=== PATIENT | male | born 1975 | race Hispanic/Latino ===

== ENCOUNTER 2021-12-11 21:04 | Inpatient (IN) | payer OTHER, SELFPAY ==
[~2021-12-11 21:04] MED LIST: Iopamidol 370 76% 100 ML VIAL ONE
[2021-12-11] MEDS ORDERED: CEFAZOLIN 1 GM VIAL ONE (21:11)
[2021-12-11] MEDS ORDERED: Boostrix 0.5 ML (Tdap) VIAL ONE (21:11)
[2021-12-11 21:21] LABS: Hemoglobin 16.7 g/dL (14.0-18.0); Mean Corpuscular HGB CONC 33.2 g/dL (32.0-36.0); Mean Corpuscular Hemoglobin 32.2 pg (27.0-31.0); Mean Corpuscular Volume 96.9 fL (78.0-98.0); Mean Platelet Volume 9.6 fL (7.4-10.4); Platelet Count 160 thou/uL (130-400); RBC Distribution Width 12.1 % (11.5-14.5); White Blood Cell (WBC) Count 18.5 thou/uL (4.8-10.8)
[2021-12-11] MEDS ORDERED: hydrALAZINE 20 MG/ML VIAL SLOW IVP PRN (21:29)
[2021-12-11] MEDS ORDERED: Dextrose 5% in Water 1,000 ML IV PRN (21:29)
[2021-12-11] MEDS ORDERED: Promethazine HCl 25 MG/ML VIAL IM PRN (21:29)
[2021-12-11] MEDS ORDERED: Ondansetron PF 4 MG/2 ML Vial IVP PRN (21:29)
[2021-12-11] MEDS ORDERED: Dextrose 50% Abboject 50 ML SYRINGE SLOW IVP PRN (21:29)
[2021-12-11 21:30] LABS: INR-International Normal Ratio 1.1; PTT 25.8 sec (22.9-36.1)
[2021-12-11] MEDS ORDERED: fentaNYL Citrate/PF 2,000 MCG in Sodium Chloride 0.9% 60 ML IV PRN (21:33)
[2021-12-11 21:38] LABS: ALT (SGPT) 240 U/L (8-55); AST (SGOT) 331 U/L (5-34); Albumin 3.8 g/dL (3.5-5.0); Alkaline Phosphatase 125 U/L (40-110); Anion Gap 22 mmol/L (10-20); BUN (Urea Nitrogen) 11 mg/dL (8.9-20.6); Bilirubin, Total 0.5 mg/dL (0.2-1.2); Calc. Creatinine Clearance 0 mL/min (70-130); Calcium 8.3 mg/dL (7.8-10.44); Carbon Dioxide 19 mmol/L (22-29); Chloride 101 mmol/L (98-107); Estimated GFR 73; Glucose 417 mg/dL (70-105); Potassium 3.3 mmol/L (3.5-5.1); Protein, Total 7.8 g/dL (6.0-8.3); Sodium 139 mmol/L (136-145)
[2021-12-11 21:50] LABS: Acetaminophen Less than 10.0 mcg/mL (10.0-30.0); Alcohol 224 mg/dL (Less than 10); Salicylate Less than 8.0 mg/dL (15.0-30.0)
[2021-12-11 21:52] LABS: Band 1 % (5-11); Differential Comment Immature Cell(s); Eosinophils 4 % (0-10); Lymphocytes 70 % (21-51); MDiff Complete? YES; Metamyelocyte 1 % (0-0); Monocytes 2 % (0-10); Neutrophil 18 % (42-75); Platelet Morphology Comment Appears Adequate; RBC Morphology Normal; Reactive Lymphocytes 2 % (0-10); Reflex for Review?? YES
[2021-12-11] MEDS ORDERED: Propofol 1,000 MG/100 ML VIAL IV ONE (22:03)
[2021-12-11] MEDS ORDERED: Propofol 1,000 MG/100 ML VIAL IV PRN (22:03)
[2021-12-11] MEDS ORDERED: Fluorescein Opthalmic Strip ONE (22:11)
[2021-12-11 22:12] LABS: Bacteria/HPF None Seen HPF (None Seen); Bilirubin Negative (Negative); Blood, Urine 2+ (Negative); Clarity Clear (Clear); Glucose, Urine (Dipstick) Greater than 1000 mg/dL (Negative); Ketone, Urine Negative (Negative); Leukocyte Negative Leu/uL (Negative); Nitrite Negative (Negative); Protein, Urine (Dipstick) Negative (Neg-Trace); Specific Gravity, Urine 1.031 (1.002-1.036); Squamous Epithelial None Seen HPF (0-3); Urobilinogen Normal mg/dL (Less than 2); WBC/HPF 0-3 HPF (0-3); pH, Urine 5.5 (5.0-9.0)
[2021-12-11] MEDS ORDERED: Proparacaine 0.5% Opth 15 ML BOT ONE (22:12)
[2021-12-11 22:15] LABS: Actual Bicarbonate (HCO3a) 20.4 mEq/L (22-28); Analyzer IN Cardio ER; Base Excess (BEa) -8.1 mEq/L (-2.0 to +3.0); CO2 Tension 53.5 mmHg (35.0-45.0); Calcium, Ionized (arterial) 1.09 mmol/L (1.12-1.30); Carboxyhemoglobin (COHb) 1.2 gm% (0.0-3.0); Hemoglobin (Hb) 15.4 g/dL (14.0-18.0); O2 Tension (PaO2), arterial 102.9 mmHg (80.0-100.0); Potassium - ABG Lab 3.91 mmol/L (3.70-5.30)
[2021-12-11 22:19] LABS: Amphetamine Not Detected (NotDetected); Barbiturates Screen Not Detected (NotDetected); Benzodiazepine Screen Not Detected (NotDetected); Cocaine Metabolite Screen Not Detected (NotDetected); Methadone Not Detected (NotDetected); Methamphetamine Not Detected (NotDetected); Opiate Screen Not Detected (NotDetected); Oxycodone Screen Not Detected (NotDetected); Phencyclidine (PCP) Not Detected (NotDetected); THC/Cannabinoid Screen Not Detected (NotDetected); Tricyclic Screen Not Detected (NotDetected)
[2021-12-11 22:21] LABS: Puncture Site RRA
[2021-12-11 22:22] LABS: ALV-art Gradient 543.225 mmHg (0-20)
[2021-12-11 22:41] LABS: Hemoglobin A1c 10.6 % (4.0-6.0)
[2021-12-11] MEDS: Rocuronium Bromide 10 MG/ML (10ML VIAL) ONE (23:09)
[2021-12-11] MEDS: Sodium Chloride 0.9% 1,000 ML IV SCH (23:38)
[2021-12-11] MEDS ORDERED: Acetaminophen 325 MG TAB PO SCH (23:59)
[2021-12-12] MEDS: Acetaminophen 500 MG TAB PO SCH ×3 (00:07→12:32)
[2021-12-12] MEDS: Rocuronium Bromide 10 MG/ML (10ML VIAL) ONE (00:08)
[2021-12-12 00:15] LABS: Lactic Acid 6.3 mmol/L (0.5-2.2)
[2021-12-12] MEDS: Cyclobenzaprine 10 MG TAB PO PRN ×2 (01:35→14:54)
[2021-12-12 03:39] LABS: #Basophils 0.1 thou/uL (0.0-0.2); #Lymphocytes 2.2 thou/uL (1.20-3.40); #Monocytes 0.8 thou/uL (0.11-0.59); #Neutrophils 11.9 thou/uL (1.40-6.50); %Basophils 0.4 % (0.0-1.0); %Eosinophils 0.1 % (0.0-10.0); %Lymphocytes 14.5 % (21.0-51.0); %Monocytes 5.2 % (0.0-10.0); %Neutrophils 79.8 % (42.0-75.0); Hemoglobin 15.5 g/dL (14.0-18.0); Mean Corpuscular HGB CONC 34.5 g/dL (32.0-36.0); Mean Corpuscular Hemoglobin 33.3 pg (27.0-31.0); Mean Corpuscular Volume 96.4 fL (78.0-98.0); Mean Platelet Volume 9.5 fL (7.4-10.4); Platelet Count 139 thou/uL (130-400); Red Blood Cell (RBC) Count 4.65 mill/uL (4.70-6.10); White Blood Cell (WBC) Count 14.9 thou/uL (4.8-10.8)
[2021-12-12 03:59] LABS: Anion Gap 25 mmol/L (10-20); BUN (Urea Nitrogen) 10 mg/dL (8.9-20.6); CK (CPK) 795 U/L (30-200); Calc. Creatinine Clearance 142 mL/min (70-130); Calcium 8.2 mg/dL (7.8-10.44); Carbon Dioxide 14 mmol/L (22-29); Chloride 107 mmol/L (98-107); Estimated GFR 93; Glucose 324 mg/dL (70-105); Magnesium 1.5 mg/dL (1.6-2.6); Sodium 142 mmol/L (136-145)
[2021-12-12 04:08] LABS: Lactic Acid 9.2 mmol/L (0.5-2.2)
[2021-12-12 04:09] LABS: Phosphorus 1.2 mg/dL (2.3-4.7)
[2021-12-12] MEDS ORDERED: Sodium Chloride 0.9% 1,000 ML IV SCH (04:30)
[2021-12-12] MEDS ORDERED: Potassium Phosphate 30 MMOL in Sodium Chloride 0.9% 500 ML IVPB SCH (05:00)
[2021-12-12] MEDS ORDERED: Magnesium Sulfate In Water 4 GM in Premix Bag 1 BAG IVPB SCH (05:30)
[2021-12-12] MEDS: Oxazepam 10 MG CAP PO SCH ×3 (06:00→20:23)
[2021-12-12] MEDS ORDERED: Calcium Chloride 1 GM/10 ML Abboject SYRINGE IVP SCH (06:15)
[2021-12-12 06:22] LABS: Lactic Acid 5.4 mmol/L (0.5-2.2)
[2021-12-12 06:58] LABS: Actual Bicarbonate (HCO3a) 20.6 mEq/L (22-28); Base Excess (BEa) -1.2 mEq/L (-2.0 to +3.0); CO2 Tension 27.5 mmHg (35.0-45.0); Calcium, Ionized (arterial) 1.24 mmol/L (1.12-1.30); Potassium - ABG Lab 4.23 mmol/L (3.70-5.30); pH, Arterial 7.49 (7.35-7.45)
[2021-12-12 06:59] LABS: ALV-art Gradient 169.825 mmHg (0-20); Puncture Site RRA
[2021-12-12] MEDS: Sodium Chloride 0.9% 1,000 ML IV SCH ×4 (07:00→20:46)
[2021-12-12] MEDS ORDERED: Dextrose 50% Abboject 50 ML SYRINGE IVP PRN (08:15)
[2021-12-12] MEDS ORDERED: Dextrose 5% in Water 1,000 ML IV PRN (08:15)
[2021-12-12] MEDS: Folic Acid 1 MG TAB PO SCH (08:31)
[2021-12-12] MEDS: Pregabalin 50 MG CAP PO SCH ×2 (08:31→20:23)
[2021-12-12] MEDS: Thiamine 100 MG TAB PO SCH (08:31)
[2021-12-12] MEDS: HumaLOG 300 UNITS/3 ML VIAL SC PRN ×2 (08:31→16:25)
[2021-12-12] MEDS: Insulin Glargine 30 UNITS/0.3 ML VIAL SC SCH (08:31)
[2021-12-12] MEDS: Famotidine/PF 20 mg/2ml Vial SLOW IVP SCH ×2 (08:32→20:23)
[2021-12-12] MEDS: Acetaminophen/Codeine 30-300mg Tablet PO SCH ×2 (14:13→20:21)
[2021-12-12] MEDS ORDERED: Morphine 2 MG/ML VIAL SLOW IVP PRN (14:17)
[2021-12-13] MEDS: HumaLOG 300 UNITS/3 ML VIAL SC PRN ×6 (00:13→21:11)
[2021-12-13] MEDS: Acetaminophen/Codeine 30-300mg Tablet PO SCH (01:45)
[2021-12-13 04:04] LABS: Lactic Acid 1.3 mmol/L (0.5-2.2)
[2021-12-13 04:15] LABS: Anion Gap 11 mmol/L (10-20); BUN (Urea Nitrogen) 11 mg/dL (8.9-20.6); CK (CPK) 658 U/L (30-200); Calc. Creatinine Clearance 188 mL/min (70-130); Calcium 8.1 mg/dL (7.8-10.44); Carbon Dioxide 24 mmol/L (22-29); Chloride 111 mmol/L (98-107); Estimated GFR 112; Glucose 208 mg/dL (70-105); Magnesium 2.1 mg/dL (1.6-2.6); Phosphorus 2.3 mg/dL (2.3-4.7); Potassium 3.9 mmol/L (3.5-5.1); Sodium 142 mmol/L (136-145)
[2021-12-13 04:17] LABS: #Eosinphils 0.1 thou/uL (0.0-0.7); #Lymphocytes 2.8 thou/uL (1.20-3.40); #Monocytes 0.8 thou/uL (0.11-0.59); #Neutrophils 7.6 thou/uL (1.40-6.50); %Basophils 0.3 % (0.0-1.0); %Lymphocytes 24.2 % (21.0-51.0); %Monocytes 7.3 % (0.0-10.0); %Neutrophils 67.1 % (42.0-75.0); Mean Corpuscular HGB CONC 32.8 g/dL (32.0-36.0); Mean Corpuscular Hemoglobin 31.5 pg (27.0-31.0); Mean Corpuscular Volume 96.1 fL (78.0-98.0); Mean Platelet Volume 9.2 fL (7.4-10.4); Platelet Count 103 thou/uL (130-400); Platelet Morphology Comment Appears Decreased; RBC Distribution Width 12.3 % (11.5-14.5); Red Blood Cell (RBC) Count 4.14 mill/uL (4.70-6.10); White Blood Cell (WBC) Count 11.4 thou/uL (4.8-10.8)
[2021-12-13] MEDS: Sodium Chloride 0.9% 1,000 ML IV SCH (05:07)
[2021-12-13] MEDS ORDERED: Acetaminophen/Codeine 30-300mg Tablet PO PRN (05:38)
[2021-12-13] MEDS: Oxazepam 10 MG CAP PO SCH ×2 (05:59→21:11)
[2021-12-13] MEDS: Acetaminophen 650 MG/20.3 ML UDCUP PO SCH ×3 (05:59→17:01)
[2021-12-13] MEDS: Insulin Glargine 30 UNITS/0.3 ML VIAL SC SCH (09:20)
[2021-12-13] MEDS: Pregabalin 50 MG CAP PO SCH (09:21)
[2021-12-13] MEDS: Famotidine/PF 20 mg/2ml Vial SLOW IVP SCH (09:21)
[2021-12-13] MEDS: Thiamine 100 MG TAB PO SCH (09:22)
[2021-12-13] MEDS: Folic Acid 1 MG TAB PO SCH (09:22)
[2021-12-13] MEDS ORDERED: Famotidine 20 MG TAB PO SCH (21:00)
[2021-12-13] MEDS ORDERED: Gabapentin 300 MG CAP PO SCH (21:00)
[2021-12-13] MEDS: Acetaminophen/Codeine 30-300mg Tablet PO PRN (21:11)
[2021-12-13] MEDS: Famotidine 20 MG TAB PO SCH (21:11)
[2021-12-14] MEDS: Acetaminophen 325 MG TAB PO SCH ×3 (00:01→14:06)
[2021-12-14 04:01] LABS: #Eosinphils 0.2 thou/uL (0.0-0.7); #Lymphocytes 3.3 thou/uL (1.20-3.40); #Monocytes 0.7 thou/uL (0.11-0.59); #Neutrophils 6.9 thou/uL (1.40-6.50); %Basophils 0.1 % (0.0-1.0); %Lymphocytes 29.5 % (21.0-51.0); %Monocytes 6.2 % (0.0-10.0); %Neutrophils 62.2 % (42.0-75.0); Hemoglobin 12.8 g/dL (14.0-18.0); Mean Corpuscular HGB CONC 33.1 g/dL (32.0-36.0); Mean Corpuscular Hemoglobin 31.6 pg (27.0-31.0); Mean Corpuscular Volume 95.4 fL (78.0-98.0); Mean Platelet Volume 9.6 fL (7.4-10.4); Platelet Count 111 thou/uL (130-400); RBC Distribution Width 12.2 % (11.5-14.5); Red Blood Cell (RBC) Count 4.07 mill/uL (4.70-6.10); White Blood Cell (WBC) Count 11.2 thou/uL (4.8-10.8)
[2021-12-14 04:27] LABS: Anion Gap 15 mmol/L (10-20); BUN (Urea Nitrogen) 8 mg/dL (8.9-20.6); Calc. Creatinine Clearance 202 mL/min (70-130); Calcium 8.7 mg/dL (7.8-10.44); Carbon Dioxide 23 mmol/L (22-29); Chloride 104 mmol/L (98-107); Estimated GFR 114; Glucose 160 mg/dL (70-105); Magnesium 1.7 mg/dL (1.6-2.6); Phosphorus 3.8 mg/dL (2.3-4.7); Potassium 3.2 mmol/L (3.5-5.1); Sodium 139 mmol/L (136-145)
[2021-12-14] MEDS ORDERED: Magnesium 2 GM/50 ML(in water) 2 GM in Premix Bag 1 BAG IVPB SCH (07:15)
[2021-12-14] MEDS ORDERED: Potassium Phosphate 30 MMOL in Sodium Chloride 0.9% 250 ML 250 ML IVPB SCH (07:30)
[2021-12-14] MEDS: Oxazepam 10 MG CAP PO SCH (07:46)
[2021-12-14] MEDS: Acetaminophen/Codeine 30-300mg Tablet PO PRN ×2 (07:46→14:05)
[2021-12-14] MEDS: Thiamine 100 MG TAB PO SCH (07:47)
[2021-12-14] MEDS: Folic Acid 1 MG TAB PO SCH (07:47)
[2021-12-14] MEDS: Cyclobenzaprine 10 MG TAB PO PRN (07:47)
[2021-12-14] MEDS: Insulin Glargine 30 UNITS/0.3 ML VIAL SC SCH (07:47)
[2021-12-14] MEDS: Famotidine 20 MG TAB PO SCH (07:47)
[2021-12-14] MEDS ORDERED: Multivitamin W/ Minerals 1 TAB PO SCH (09:00)
== END 2021-12-14 14:26 | disposition home or self-care (01) | DRG 963 ==
LOC: ERS 21:04 → EDBD 21:04 → CCU 21:32
PROVIDERS: ADMIT Surgery; ATTEND Surgery
PROC: 5A1945Z Respiratory Ventilation, 24-96 Consecutive Hours (ICD-10-PCS; principal; 2021-12-11)
PROC: 0B928ZZ Drainage of Carina, Via Natural or Artificial Opening Endoscopic (ICD-10-PCS; 2021-12-11)
DX: S06.6X9A Traumatic subarachnoid hemorrhage with loss of consciousness of unspecified duration, initial encounter (principal); J96.01 Acute respiratory failure with hypoxia; T79.6XXA Traumatic ischemia of muscle, initial encounter; S32.049A Unspecified fracture of fourth lumbar vertebra, initial encounter for closed fracture; E87.2 Acidosis; R40.2312 Coma scale, best motor response, none, at arrival to emergency department; R40.2122 Coma scale, eyes open, to pain, at arrival to emergency department; S02.32XA Fracture of orbital floor, left side, initial encounter for closed fracture; E87.6 Hypokalemia; E11.65 Type 2 diabetes mellitus with hyperglycemia; S00.81XA Abrasion of other part of head, initial encounter; F10.129 Alcohol abuse with intoxication, unspecified; Y90.7 Blood alcohol level of 200-239 mg/100 ml; E83.42 Hypomagnesemia; V49.40XA Driver injured in collision with unspecified motor vehicles in traffic accident, initial encounter
CPT/HCPCS: 31500; 36415; 36416; 36600; 51702; 70450; 70486; 70498; 71045; 71260; 72125; 72170; 74177; 80048; 80053; 80306; 80307; 81003; 81015; 82550; 82805; 83036; 83605; 83735; 84100; 84146; 84484; 85025; 85060; 85610; 85730; 86850; 86900; 86901; 90471; 90715; 94002; 94003; 96365; 96367; G0390; J0360; J0690; J1815; J2270; J2704; J3475; J3490; J7030; J7050; Q9967; S0028; U0003; U0005